=== PATIENT | female | born 1990 | race Two or more races ===

== ENCOUNTER → 2018-04-10 | Outpatient (CLI) | payer MEDICAID ==
[~2018-04-10] VITALS: Ht 157.5 cm; Wt 53.5 kg
[~2018-04-10] MED LIST: Lidocaine 2% 20mg/ml/Epi 0.005mg/ml 20ml vial INJ ONE; Lidocaine 2% 20mg/ml/Epi 0.005mg/ml 20ml vial ONE
--- NOTE | 2018-04-10 10:50 | Pre-Procedure Note/Attestation ---
Pre-Procedure Note/Attestation Complete Prior to Procedure Planned Procedure: right Procedure Narrative: Tunneled dialysis catheter removal Indications for Procedure Pre-Operative Diagnosis: Catheter no longer needed Attestation I attest that I discussed the nature of the procedure; its benefits; risks and complications; and alternatives (and the risks and benefits of such alternatives ), prior to the procedure, with the patient (or the patient's legal advertising sales representative). I attest that, if there was a reasonable possibility of needing a blood transfusion, the patient (or the patient's legal advertising sales representative) was given the [facility] standardized written summary, pursuant to the [employer]unny [place] Blood Safety Act ([place] Health and Safety Code # 1645, as amended). I attest that I re-evaluated the patient just prior to the surgery and that there has been no change in the patient's H&P, except as documented below: Jason Chavez M.D. Apr 10, 2018 10:50
--- NOTE | 2018-04-10 10:58 | Operative Note - PDOC ---
Operative Note Operative Note Date of Operation/Procedure: Apr 10, 2018 Pre-op Diagnosis: Catheter no longer needed Procedure: Tunneled dialysis catheter removal Post-op Diagnosis: same; catheter removed in its entirity Post-op Diagnosis: same as pre-op plus Anesthesia: local Specimen: none Complications: none Condition: stable Estimated Blood Loss: none Drains: none Implant(s) used?: No Indications for Procedure catheter no longer needed Description of Procedure uneventful removal of tunneled dialysis catheter. catheter removed in its entirity Jason Chavez M.D. Apr 10, 2018 10:58
--- NOTE | 2018-04-10 15:33 | Diagnostic Imaging Report ---
Clinical history: Dialysis catheter no longer needed. Referred for removal. Technique: Informed consent obtained. Right chest and external portions of the indwelling dialysis catheter were prepped and draped in usual sterile fashion. Procedure timeout performed. Spot fluoroscopic image of the chest obtained. The 2 that a catheter was locally anesthetized with 1% lidocaine. The subcutaneous cuff of the catheter was freed with blunt dissection and the catheter was removed. The entire catheter and subcutaneous cuff were removed. Hemostasis easily achieved with manual compression and a sterile dressing applied. Final spot fluoroscopic image of the chest was obtained. Patient tolerated the procedure well and left the department stable condition. Findings: Initial fluoroscopic image demonstrates indwelling dialysis catheter with tip at the cavoatrial junction. Final image demonstrates complete removal of the catheter. Physical exam of the catheter confirms removal of the catheter in its entirety, including the subcutaneous cuff. Total fluoroscopy time: 0.1 minutes. Total fluoroscopy dose: 29 dGycm2. Estimated blood loss less than 1 mL. Impression: Successful removal of tunneled dialysis catheter as above.
== END | disposition home or self-care (01) ==
LOC: RAD 10:04
DX: N18.6 End stage renal disease (principal)
CPT/HCPCS: 36589; 71045